=== PATIENT | male | born 1970 | race Caucasian/White ===

== ENCOUNTER 2024-02-04 17:15 | Emergency (ER) | payer BC ==
[~2024-02-04] VITALS: Ht 170.2 cm; Wt 95.3 kg
[2024-02-04] MEDS: LORAZEPAM 2 MG/ML 1 ML VIAL IVP ONE ×2 (17:36→18:57)
[2024-02-04 17:48] LABS: BASOPHILS # (AUTO) 0.04 K/uL (0.00-0.20); BASOPHILS % (AUTO) 0.6 % (0.0-5.0); EOSINOPHILS # (AUTO) 0.01 K/uL (0.00-0.70); EOSINOPHILS % (AUTO) 0.1 % (0.0-8.0); HEMATOCRIT 42.9 % (42-54); IMMATURE GRANULOCYTE ABSOLUTE 0.02 K/uL (0-1); LYMPHOCYTES # (AUTO) 1.5 K/uL (1.0-4.8); LYMPHOCYTES % (AUTO) 21.9 % (21.0-51.0); MEAN CORPUSCULAR HEMOGLOBIN 35.2 pg (27.0-33.0); MEAN CORPUSCULAR HGB CONC 36.1 g/dL (32.0-36.0); MEAN CORPUSCULAR VOLUME 97.5 fL (79-99); MONOCYTES # (AUTO) 0.5 K/uL (0.1-1.0); MONOCYTES % (AUTO) 6.9 % (3.0-13.0); NEUTROPHILS # (AUTO) 4.8 K/uL (1.8-7.7); NEUTROPHILS % (AUTO) 70.2 % (40.0-77.0); PLATELET COUNT (AUTO) 197 K/uL (130-400); WHITE BLOOD COUNT (AUTO) 6.9 K/uL (4.8-10.8)
[2024-02-04 17:55] LABS: CARBON DIOXIDE 28 mmol/L (21-32); CHLORIDE 99 mmol/L (101-111); CREATININE 0.7 mg/dL (0.5-1.3); GLOMERULAR FILTR. RATE CALC 111 mL/min (>90); GLUCOSE,RANDOM 105 mg/dL (70-105); POTASSIUM 3.7 mmol/L (3.5-5.1); SODIUM SERUM 136 mmol/L (136-145); UREA NITROGEN, BLOOD 13 mg/dL (7-18)
[2024-02-04 18:09] LABS: ALANINE AMINOTRANSFERASE 36 U/L (12-78); ALBUMIN 3.8 g/dL (3.5-5.0); ALCOHOL, BLOOD 113 mg/dL (0-10); ASPARTATE AMINOTRANSFERASE 42 U/L (10-37); BILIRUBIN,TOTAL 0.4 mg/dL (0.2-1.0); TOTAL PROTEIN, SERUM 7.2 g/dL (6.0-8.3)
[2024-02-04 18:12] LABS: ACETAMINOPHEN < 1 mcg/mL (10-29); CREATINE KINASE, TOTAL 418 U/L (21-232); SALICYLATE < 2.8 mg/dL (2.8-20.0)
[2024-02-04] MEDS: ATENOLOL 25 MG TABLET PO ONE (18:58)
[2024-02-04] MEDS: 0.9%NACL 1000ML 1,000 ML IV ONE (18:58)
[2024-02-04] MEDS ORDERED: LORAZEPAM 2 MG/ML 1 ML VIAL IVP PRN ×2 (19:00)
[2024-02-04] MEDS ORDERED: PHARMACY COMMUNICATION MISC PRN (19:00)
[2024-02-04] MEDS ORDERED: CHLORDIAZEPOXIDE HCL 25 MG CAP PO PRN ×2 (19:00)
[2024-02-04] MEDS ORDERED: ATENOLOL 25 MG TABLET PO ONE (19:00)
[2024-02-04 19:09] LABS: APPEARANCE,URINE CLEAR (CLEAR); BILIRUBIN,URINE NEGATIVE (NEGATIVE); COLOR,URINE LIGHT-YELLOW (YELLOW); GLUCOSE, URINE (UA) NEGATIVE (NEGATIVE); KETONES,URINE NEGATIVE (NEGATIVE); LEUKOCYTE ESTERASE ,URINE NEGATIVE Leu/uL (NEGATIVE); NITRATE,URINE NEGATIVE (NEGATIVE); OCCULT BLOOD,URINE NEGATIVE (NEGATIVE); PROTEIN,URINE 10 mg/dL (NEGATIVE); UROBILINOGEN,URINE 0.2 mg/dL (0.2-1.0)
[2024-02-04 19:11] LABS: ADD UA MICROSCOPIC YES
[2024-02-04 19:12] LABS: BACTERIA,URINE RARE /HPF (None Seen); MUCUS,URINE RARE LPF (None Seen)
[2024-02-04 19:16] LABS: AMPHET/METH SCREEN,URINE NEGATIVE (NEGATIVE); BARBITURATE SCREEN, URINE NEGATIVE (NEGATIVE); BENZODIAZEPINES SCREEN,URINE NEGATIVE (NEGATIVE); CANNABINOID SCREEN,URINE NEGATIVE (NEGATIVE); COCAINE SCREEN,URINE NEGATIVE (NEGATIVE); OPIATE SCREEN,URINE NEGATIVE (NEGATIVE); PHENCYCLIDINE SCREEN,URINE NEGATIVE (NEGATIVE)
[2024-02-04] MEDS: M.V.I. IV [ADULT] 10 ML, FOLIC ACID 1 MG, THIAMINE HCL 100 MG in 0.9%NACL 1000ML 1,000 ML IV STA (19:50)
[2024-02-04 23:51] VITALS: BP 143/80; PULSE 75; RESP 18; O2SAT 98
== END 2024-02-05 01:25 | disposition home or self-care (01) ==
LOC: EDH 17:15
DX: F10.20 Alcohol dependence, uncomplicated (principal); I10 Essential (primary) hypertension
CPT/HCPCS: 99284; 96365; 96375; 96366; 96361; 82550; 80053; 80305; 85025; 81001; 36415; G0481; J7030 ×2; J3411; J2060 ×2; J3490

== ENCOUNTER 2025-09-26 22:22 | Emergency (ER) | payer BC, OTHER ==
[~2025-09-26] VITALS: Ht 182.9 cm; Wt 82.1 kg
[2025-09-26 23:31] LABS: IMMATURE GRANULOCYTE ABSOLUTE 0.03 K/uL (0-1); NUCLEATED RED BLOOD CELLS 0.0 % (0.0-0.19); PLATELET COUNT (AUTO) 197 K/uL (130-400); RED BLOOD CELL COUNT(AUTO) 4.21 MIL/uL (4.50-6.20); RED CELL DISTRIBUTION WIDTH 12.5 % (11.0-15.5); WHITE BLOOD COUNT (AUTO) 9.8 K/uL (4.8-10.8)
[2025-09-26 23:48] LABS: CREATININE 1.0 mg/dL (0.5-1.3); GLOMERULAR FILTR. RATE CALC 89.0 mL/min (>90); GLUCOSE,RANDOM 115.0 mg/dL (70-105); SODIUM SERUM 138.0 mmol/L (136-145); UREA NITROGEN, BLOOD 16.0 mg/dL (7-18)
[2025-09-27 01:14] LABS: ERYTHROCYTE SEDIMENTATION RATE 5 MM/HR (0-20)
[2025-09-27] MEDS: HYDROcodone/APAP 5/325 1 TAB TABLET PO ONE (01:59)
--- NOTE | 2025-09-27 02:21 | HMCIMG ---
EXAM: US for Deep Venous Thrombosis, right lower extremity. CLINICAL HISTORY: Swelling. TECHNIQUE: Real-time ultrasound scan of the veins of the right lower extremity with color Doppler flow, spectral waveform analysis and compression. COMPARISON: None provided. FINDINGS: DEEP VEINS: The common femoral, superficial femoral, and popliteal veins are echolucent and compressible. There is normal color Doppler flow throughout. The visualized calf veins appear patent. SOFT TISSUES: Complex area in the popliteal region, likely a Feliciano???s cyst measuring 4.3 x 1.7 x 2.7 cm. IMPRESSION: No deep venous thrombosis is evident on right lower extremity examination. Complex area in the popliteal region, likely a Feliciano???s cyst measuring 4.3 x 1.7 x 2.7 cm. /[place]
[2025-09-27] MEDS ORDERED: SULF1TAB42 PO (02:27)
[2025-09-27] MEDS ORDERED: KETO10TA2 PO (02:30)
--- NOTE | 2025-09-27 02:30 | ERN ---
General Chief Complaint: Cellulitis Stated Complaint: RT FOOT PAIN, REDNESS AND SWELLING Time Seen by MD: 22:28 Time Seen by Midlevel: 22:28 Source: patient History of Present Illness Initial Comments Patient is a 55-year-old male presenting to the emergency department with right lower extremity pain, swelling, and redness that has been progressively worse jeni. Patient denies any fever, chills, or any other symptoms at this time. Allergies: Coded Allergies: No Known Drug Allergies (Unverified Allergy, Unknown, 02/04/24) Past Medical History Past Medical History: Hypertension, Other Medical History Other: ETOH ABUSE Past Surgical History: Other Surgical History Other: BACK, RT FOOT Social History Social History: ETOH ROS Dictation CONSTITUTIONAL: Negative except for HPI HEAD/FACE: Negative except for HPI EENT: Negative except for HPI RESPIRATORY: Negative except for HPI GASTROINTESTINAL/ABDOMINAL: Negative except for HPI GENITOURINARY: Negative except for HPI MUSCULOSKELETAL: Negative except for HPI INTEGUMENTARY: Negative except for HPI NEUROLOGICAL/PSYCH: Negative except for HPI HEMATOLOGIC/LYMPHATIC: Negative except for HPI All Systems Negative, Except as noted above. 13 point review of systems assessed and all negative except for above. Physical Exam Physical Exam Dictation Vital Signs reviewed General Appearance: Alert, oriented x 3, no acute distress, well developed, nourished. Head and Face: non-traumatic. Eyes: PERRL, pink conjunctivas, eyelid no trauma, anterior chamber with arcus senilis. Ears: Pinnas intact and no signs of trauma or erythema ear canals clear and no discharge TM no erythema Nose: No discharge, no bleeding. Oropharynx: Mouth normal, tongue pink, pharynx clear,no erythema, tonsils no exudates, no abscesses noted, mucous membrane moist Neck: Supple, non-tender, no thyromegaly, no masses, no JVD, no bruits Breast:Deferred Chest:No tenderness, no crepitus, no paradoxical movement, no retractions Lungs:Clear, well-ventilated, symmetric, no rales, no wheezing, no rhonchi, no stridor, good breath sounds bilaterally Heart: Regular rate, regular rhythm, no murmur, no gallops Vascular: There is some edema/swelling to the right lower extremity from the right tib-fib area extending down to the right ankle Abdomen: Soft, positive bowel sounds, nondistended, no guarding, nontender, no rebound, no masses no hepatomegaly, no splenomegaly, no Zuleta's sign, no hernias. Rectal: Deferred Genital: Deferred Neurological: Normal speech, motor function intact, sensory function intact Musculoskeletal: Neck nontender, full range of motion, back nontender, full range of motion, Extremities: nontender, full range of motion Skin: There was mild redness to the right lower extremity Lymphatic: Deferred Results Laboratory and Microbiology Lab and Micro Result Laboratory Tests Test 09/26/25 23:24 White Blood Count 9.8 K/uL (4.8-10.8) Red Blood Count 4.21 MIL/uL (4.50-6.20) L Hemoglobin 14.4 g/dL (14.0-18.0) Hematocrit 42.3 % (42-54) Mean Corpuscular Volume 100.5 fL (79-99) H Mean Corpuscular Hemoglobin 34.2 pg (27.0-33.0) H Mean Corpuscular Hemoglobin Concent 34.0 g/dL (32.0-36.0) Red Cell Distribution Width 12.5 % (11.0-15.5) Platelet Count 197 K/uL (130-400) Mean Platelet Volume 10.4 fL (7.5-10.5) Immature Granulocyte % (Auto) 0.3 % (0-1) Neutrophils (%) (Auto) 63.5 % (40.0-77.0) Lymphocytes (%) (Auto) 22.7 % (21.0-51.0) Monocytes (%) (Auto) 7.5 % (3.0-13.0) Eosinophils (%) (Auto) 5.3 % (0.0-8.0) Basophils (%) (Auto) 0.7 % (0.0-5.0) Neutrophils # (Auto) 6.2 K/uL (1.8-7.7) Lymphocytes # (Auto) 2.2 K/uL (1.0-4.8) Monocytes # (Auto) 0.7 K/uL (0.1-1.0) Eosinophils # (Auto) 0.52 K/uL (0.00-0.70) Basophils # (Auto) 0.07 K/uL (0.00-0.20) Absolute Immature Granulocyte (auto 0.03 K/uL (0-1) Nucleated Red Blood Cells 0.0 % (0.0-0.19) Erythrocyte Sedimentation Rate 5 MM/HR (0-20) Sodium Level 138 mmol/L (136-145) Potassium Level 3.8 mmol/L (3.5-5.1) Chloride Level 103 mmol/L (101-111) Carbon Dioxide Level 26 mmol/L (21-32) Blood Urea Nitrogen 16 mg/dL (7-18) Creatinine 1.0 mg/dL (0.5-1.3) Glomerular Filtration Rate Calc 89 mL/min (>90) Random Glucose 115 mg/dL (70-105) H Lactic Acid Level 1.9 mmol/L (0.8-2.5) Total Calcium 8.8 mg/dL (8.5-10.1) Procalcitonin < 0.05 ng/mL (0.05-0.5) L Labs Reviewed?: Yes MDM MDM: Differential diagnosis: Osteomyelitis, cellulitis, fracture, DVT There are no social concerns with this patient. Prescription drug management Prescriptions will include: Bactrim Medical management and examination interpretation discussions were had by me with other qualified healthcare professionals as indicated for the patient's care. ED Course Orders Procedure Category Date Status Time Cbc With Differential LAB 09/26/25 Complete 22:59 Basic Metabolic Panel LAB 09/26/25 Complete 22:59 Lactic Acid LAB 09/26/25 Complete 22:59 Procalcitonin LAB 09/26/25 Complete 22:59 Erythrocyte Sed Rate LAB 09/26/25 Complete 22:59 Us Venous Doppler US 09/27/25 Resulted Unilateral 00:41 Foot Comp 3+Vws Rt RAD 09/27/25 Taken 00:41 Ankle Comp 3vws Rt RAD 09/27/25 Taken 00:41 Hydrocodone/Apap PHA 09/27/25 Complete 5/325 ([place] 5/325mg) 02:00 Ceftriaxone 1g Vial PHA 09/27/25 Complete (Rocephine 1g Inj) 02:00 Current Medications Medications (Trade) Dose Ordered Sig/Anjali Route PRN Reason Start Time Stop Time Status Last Admin Dose Admin Acetaminophen/ Hydrocodone Bitart (NORco 5/325MG) 1 tab ONCE ONCE PO 09/27/25 02:00 09/27/25 02:01 DC 09/27/25 01:59 Ceftriaxone Sodium (ROCEphine 1G INJ) 1 gm ONCE ONCE IM 09/27/25 02:00 09/27/25 02:01 DC 09/27/25 01:59 Vital Signs Date Time Temp Pulse Resp B/P (MAP) Pulse Ox O2 Delivery O2 Flow Rate FiO2 09/27/25 01:50 78 18 150/80 98 Room Air* 0 21 09/26/25 22:23 97.3 97 20 140/81 98 Room Air DX & DISP Disposition: Discharge Departure Impression: Primary Impression: Cellulitis of right lower extremity Additional Impression: Synovial cyst of popliteal space [Feliciano], right knee Condition: Stable Scripts Ketorolac Tromethamine (Ketorolac Tromethamine) 10 Mg Tablet 1 TAB PO BID for pain for 5 Days, #10 TAB 0 Refills Prov: TAYLOR BETANCOURT 09/27/25 Sulfamethoxazole/Trimethoprim (Bactrim Ds Tablet) 800 Mg-160 Mg Tablet 1 TAB PO BID for 7 Days, #14 TAB 0 Refills Prov: TAYLOR BETANCOURT 09/27/25 Additional Instructions: Your blood work today is unremarkable. Your white blood cell count is normal. Your lactic acid level, your procalcitonin level, and sedimentation rate was normal. This rules out a systemic infection or osteomyelitis (bone infection) An x-ray of the right foot and right ankle were performed. There are no bony erosions to suggest a bone infection. The hardware appears to be in place and there are no acute fractures noted. An ultrasound of your right leg was performed which reveals a small Feliciano cyst behind the right knee. This could be contributing to the pain and swelling to your right lower leg. On physical examination there is mild redness to your right lower extremity which can be concerning for an early cellulitis (superficial skin infection). You were given 1 g of ceftriaxone in the emergency department and will be tr eated outpatient with a short course of oral antibiotics to prevent an infection. If you develop any fever, chills, or any other symptoms please report to the ER for further evaluation. I suggest you follow up with your primary care doctor next week for repeat evaluation. I suggest you decrease your exercise over the next couple of days as this can worsen your Feliciano cyst Referrals: MARCOS ROMERO (PCP) Time of Disposition: 02:22 I have reviewed the case, and I agree with, Diagnosis and Plan I performed the substantive portion of the visit. I have reviewed and personally made and approve the management plan that is documented in the note by myself or the RICHELLE. I acknowledge for responsibility for the patient's ma nagement plan. TAYLOR BETANCOURT PAC Sep 27, 2025 02:30
--- NOTE | 2025-09-27 02:35 | HMCIMG ---
EXAM: CR Right Foot, 3 views. CLINICAL HISTORY: Rule out osteomyelitis. COMPARISON: None provided. FINDINGS: No acute fracture or aggressive appearing osseous lesion. Joint spaces are within normal limits. Mild diffuse soft tissue swelling. IMPRESSION: No osteomyelitis or acute bony abnormality is evident. /[place]
--- NOTE | 2025-09-27 02:36 | HMCIMG ---
EXAM: CR Right Ankle, 3 views CLINICAL HISTORY: Rule out osteomyelitis. COMPARISON: None provided. FINDINGS: No acute fracture or aggressive appearing osseous lesion. Tiny plantar and posterior calcaneal enthesophytes. There are 2 metallic screws within the distal end of the tibia. Joint spaces are within normal limits. No radiographic evidence of joint effusion. The soft tissues are unremarkable. IMPRESSION: No osteomyelitis or acute bony abnormality is evident. /[place]
[2025-09-27 02:49] VITALS: BP 148/74; PULSE 79; RESP 18; TEMP 98.4; O2SAT 98
== END 2025-09-27 02:52 | disposition home or self-care (01) ==
LOC: EDH 22:22
DX: L03.115 Cellulitis of right lower limb (principal); M71.21 Synovial cyst of popliteal space [Baker], right knee; I10 Essential (primary) hypertension; M79.604 Pain in right leg
CPT/HCPCS: 99285; 80048; 85025; 85651; 83605; 36415; 84145; 93971; 73610; 73630; 96372; J0696